=== PATIENT | male | born 1950 | race Caucasian/White ===

== ENCOUNTER 2020-07-06 17:11 | Emergency (ER) | payer OTHER, SELFPAY ==
[2020-07-06] VITALS (17 sets, daily range): BP systolic 113–126; BP diastolic 60–102; PULSE 61–67; RESP 12–20; O2SAT 92–97
--- NOTE | 2020-07-06 17:15 | RT.EKG_ITS ---
APPROVED REPORT Exam: Resting ECG Patient Location: E HR:66 bpm ECG Measurements Heart Rate 66 AXIS IN 205 P -29 QRSd 96 QRS -26 QT 391 T -9 QTc 409 Conclusion Sinus rhythm...normal P axis, V-rate 60- 99 Inferolateral infarct, old...Q >40mS, inf-lat leads
--- NOTE | 2020-07-06 17:24 | ED.GENADUL_ITS ---
Discharge Plan Disposition Patient Disposition: HOME Condition: Stable Discharge Details Clinical Impression: Fatigue Primary Care Provider: SHEELA ANTOINE ED Provider: Dg Syed Home Meds and New Rx's Prescriptions: Continued atorvastatin 80 mg Tablet 80 mg PO QHS RF: 0 carboxymethylcellulose sodium 0.5 % Drops 1 drp OPHTHALMIC (EYE) 4-6XD PRNRF: 0 aspirin 81 mg Tablet 81 mg PO DAILY RF: 0 hydrochlorothiazide 25 mg Tablet 25 mg PO DAILY RF: 0 lisinopril 40 mg Tablet 40 mg PO DAILY RF: 0 fluticasone propionate 50 mcg/actuation [place],Suspension 1 spray INTRANASAL Q12H RF: 0 metformin 500 mg Tablet Extended Release 24 Hr 1,000 mg PO BID RF: 0 metoprolol tartrate 25 mg Tablet 25 mg PO BID RF: 0 empagliflozin 25 mg Tablet 25 mg PO DAILY RF: 0 Discharge Instructions Instructions: Fatigue (ED) Additional Instructions: your blood work and cat scan did not show any concerning findings follow up with your primary care provider within one week if you feel more ill, have difficulty breathing or chest pain/pressure return to the emergency department Medical Decision Making 69 yo male comes in with one week of general fatigue and earlier this week had an episode lasting a few minutes of double vision that resolved after about 10 minutes. He states he was looking at an old photo of a cathedral when he noticed he saw two of things, and closed his left eye and it went away and has had none since. HE has noted general tiredness more than usual and called his pcp's office who referred him here. He denies headaches, fall, chest pain, abdominal pain, dyspnea. HE has no focal neuro deficits, CN II-xii intact and nih of 0. Given his double vision resolved and seems most likely monocular doubt cva/tia. Will evaluate for possible sdh given the malaise and also obtain labs to evaluate for anemia and electrolyte abnormalities. Given lack of infectious symptoms doubt this as a source for his general fatigue pt's labs and imaging unremarkable and remains stable with no deficits on exam. Unclear etiology for his general fatigue, he is ambulating with steady gait and no chest pain or dyspnea do not feel he requires hospitalization at this time. Will dc home and advised f/u with pcp and return precautions Differential Diagnosis Differential Diagnosis: anemia, electrolyte abnormality, sdh Imaging Data Radiologic Study: Attestation: I personally reviewed and interpreted this imaging study as follows: Imaging: CT Scan Radiologist's impression: IMPRESSION: 1. No acute intracranial findings. 2. Trace frontoethmoidal sinus mucosal thickening Lab Data Lab results reviewed: Yes I reviewed the patient's lab results. ECG Data Attestation: I personally reviewed and interpreted this ECG (s) as follows: Prior ECG tracings: not available for review Interpretation: sinus rhythm, rate of 66, pr 205, no acute st t wave ischemic findings HPI General Mode of arrival: ambulatory . Date/Time Provider Initiated Documentation: 07/06/20 17:24 . Limitations to Documentation: no limitations . Information obtained by: patient . History of Present Illness 69 year old M presents to the emergency department with the chief complaint of fatigue, corrine cribed as moderate, and it has been constant. No relieving factors improve symptom(s), No exacerbating factors reported . Patient did receive the following treatments prior to arrival, none Related Data Home Medications Medication Instructions Recorded Confirmed aspirin 81 mg PO DAILY 07/06/20 07/06/20 atorvastatin 80 mg PO QHS 07/06/20 07/06/20 carboxymethylcellulose sodium 1 drp OPHTHALMIC (EYE) 4-6XD PRN 07/06/20 07/06/20 empagliflozin 25 mg PO DAILY 07/06/20 07/06/20 fluticasone propionate 1 spray INTRANASAL Q12H 07/06/20 07/06/20 hydrochlorothiazide 25 mg PO DAILY 07/06/20 07/06/20 lisinopril 40 mg PO DAILY 07/06/20 07/06/20 metformin 1,000 mg PO BID 07/06/20 07/06/20 metoprolol tartrate 25 mg PO BID 07/06/20 07/06/20 Allergies Allergy/AdvReac Type Severity Reaction Status Date / Time amoxicillin Allergy Skin Rash Unverified 07/06/20 17:26 General Stated Complaint: GenMedical KHADIJAH: 2 Review of Systems All systems reviewed & are unremarkable except as noted in HPI and below Constitutional Constitutional: Denies chills and Denies fever(s) Cardiovascular Cardiovascular: Denies chest pain and Denies dyspnea Respiratory Respiratory: Denies cough and Denies dyspnea Gastrointestinal Gastrointestinal: Denies abdominal pain, Denies nausea and Denies vomiting Genitourinary Genitourinary: Denies dysuria Musculoskeletal Musculoskeletal: Denies joint swelling Integumentary/Breasts Skin/Breast: Denies rash Psychiatric Psychiatric: Denies depression PFSH Social History Smoking/Tobacco Use Status: Never Alcohol Intake: never Drug use: Never Substance use type: does not use Do you feel safe at home: Yes Do you feel safe in your relationship?: Yes Exam Const General: no acute distress Orientation: alert HENMT Head: normal to inspection Ears: external ears normal General nose exam: external nose normal Mouth: moist mucous membranes Eyes General: appearance normal, both eyes and all related structures Neck Neck: normal visual inspection Resp Effort & Inspection: normal respiratory effort and able to speak in complete sentences Cardio Rate: regular rate Skin General skin exam: no rashes or lesions noted Neuro General: patient alert and patient oriented x3 Extrem General: normal to inspection Psych Mental Status: mental status grossly normal Course Vital Signs Vital signs: Temperature Source Skin 07/06/20 17:18 Oxygen Delivery Method Room Air 07/06/20 17:18 Oxygen Flow Rate 0 07/06/20 17:18 Pain Level 0 07/06/20 17:18
[2020-07-06 17:41] LABS: Abs Immature Grans 0.04 10^3/uL (0.0-0.06); Absolute Basophil Count 0.05 10^3/uL (0.0-0.2); Absolute Eosinophil Count 0.45 10^3/uL (0.0-0.7); Absolute Lymphocyte Count 2.01 10^3/uL (1.2-3.4); Absolute Monocyte Count 1.23 10^3/uL (0.1-0.8); Absolute Neutrophil Count 4.92 10^3/uL (1.2-6.7); Basophils % 0.6; Eosinophils % 5.2; HCT 47.4 % (40.0-50.0); HGB 16.9 g/dL (13.5-17.5); Immature Grans % 0.5; Lymphocytes % 23.1; MCHC 35.7 % (32.0-36.0); MCV 86.8 fL (80-95); MPV 9.8 fL (8.0-11.0); Monocytes % 14.1; Neutrophils % 56.5; Nucleated RBC 0 %; Platelet Count 176 10^3/uL (130-400); RBC 5.46 10^6/uL (4.36-5.78); RDW 13.1 % (11.8-14.1); RDW-SD 40.8 fL
--- NOTE | 2020-07-06 17:57 | DI.CT_ITS ---
EXAM: CT HEAD WO CLINICAL HISTORY: general fatigue, double vision. TECHNIQUE: Imaging Protocol: Axial computed tomography images with coronal and sagittal reformatted images were created and reviewed COMPARISON: No exams were available for comparison FINDINGS: Ventricles and Extra axial spaces: Normal in size and morphology for the patient's age. Hemorrhage: None. Cerebral parenchyma: Mild atrophy. No mass or infarct. Midline shift: None. Fluid within the sella, consistent with benign partially empty sella. No evidence of mass. Calvarium: Normal. Visualized Paranasal sinuses/Mastoids: Mild ethmoid and sphenoid sinus mucosal thickening. Soft Tissues: Unremarkable. IMPRESSION: No acute intracranial process. RADIATION DOSE DELIVERED: Total DLP DATA REPOSITORY: All CT scans at this facility are submitted to the National Radiology Data Registry (NRDR) Dose Index Registry (DIR) with the [employer] ([employer]). RADIATION OPTIMIZATION: All CT scans at this facility use at least one of these dose optimization te chniques: automated exposure control; mA and/or kV adjustment per patient size (includes targeted exa ms where dose is matched to clinical indication); or iterative reconstruction.
[2020-07-06 17:58] LABS: PTT Activated 24.1 sec (21.0-31.4); Prothrombin Time 10.1 sec (9.3-11.0)
[2020-07-06 18:06] LABS: ALT 43 U/L (16-63); AST 17 U/L (15-37); Albumin 4.4 g/dL (3.4-5.0); Alkaline Phosphatase 87 U/L (46-116); Anion Gap 11.4 mmol/L (3-11); BUN 37 mg/dL (7-18); Bilirubin, Direct 0.28 mg/dL (0.00-0.20); Bilirubin, Total 1.8 mg/dL (0.2-1.0); CO2 24.6 mmol/L (21.0-32.0); CREATININE 1.69 mg/dL (0.70-1.30); Calcium 9.3 mg/dL (8.5-10.1); Chloride 98 mmol/L (98-107); Estimated GFR 40.56 (mL/min/1.73m2); Glucose 125 mg/dL (74-106); Magnesium 2.2 mg/dL (1.8-2.4); Potassium 3.8 mmol/L (3.5-5.1); Sodium 134 mmol/L (136-145); TSH (W/Ref FT4) 2.21 uIU/mL (0.36-3.74); Total Protein 7.7 g/dL (6.4-8.2)
--- NOTE | 2020-07-06 18:08 | DI.VRAD_ITS ---
PROCEDURE INFORMATION: Exam: CT Head Without Contrast Exam date and time: 07/06/2020 17:53 Age: 69 years old Clinical indication: Other: General fatigue, double vision TECHNIQUE: Imaging protocol: Computed tomography of the head without contrast. Radiation optimization: All CT scans at this facility use at least one of these dose optimization techniques: automated exposure control; mA and/or kV adjustment per patient size (includes targeted exams where dose is matched to clinical indication); or iterative reconstruction. COMPARISON: No relevant prior studies available. FINDINGS: Brain: No hemorrhage. No significant white matter disease. No edema. Ventricles: No ventriculomegaly. Bones/joints: No acute fracture. Sinuses: Trace frontoethmoidal sinus mucosal thickening. Possible minimal mucosal thickening in the sphenoid sinus. Mastoid air cells: No mastoid effusion. Orbits: The visualized globes and orbits are normal on noncontrast CT. Soft tissues: No suspicious lesions. Other findings: CSF density in the sella turcica, likely so-called benign empty sella. IMPRESSION: 1. No acute intracranial findings. 2. Trace frontoethmoidal sinus mucosal thickening. Dictated and Authenticated by: Na Rocha MD. Ordering:ANTONIO Conte MD
[2020-07-06 18:10] LABS: Troponin I < 0.05 ng/mL (<0.06)
== END 2020-07-06 18:50 | disposition home or self-care (01) ==
PROVIDERS: Emergency Provider Emergency Medicine; PCP Internal Medicine
DX: R53.83 Other fatigue (principal); Z86.69 Personal history of other diseases of the nervous system and sense organs
CPT/HCPCS: 80053; 80076; 93005; 99284; 70450; 83735; 84443; 84484; 85025; 85610; 85730; 93010; 99283